=== PATIENT | male | born 1970 | race Hispanic/Latino ===

== ENCOUNTER 2018-11-19 01:06 | Emergency (ER) | payer OTHER ==
[2018-11-19] MEDS ORDERED: NACL 0.9% 1000 ML 1,000 ML IV ONE (01:19)
[2018-11-19 02:34] LABS: Basophils % (Auto) 0.2 % (0.0-1.8); Eosinophils # (Auto) 0.2 K/mm3 (0.0-0.4); Hematocrit 49.9 % (35.5-45.6); Hemoglobin 17.3 gm/dl (11.8-15.2); Lymphocytes # (Auto) 1.5 K/mm3 (1.2-5.4); Lymphocytes % (Auto) 18.2 % (13.4-35.0); Mean Corpuscular HGB Conc 35 % (32-34); Mean Corpuscular Volume 88 fl (84-94); Monocytes # (Auto) 0.7 K/mm3 (0.0-0.8); Monocytes % (Auto) 8.6 % (0.0-7.3); Platelet Count 227 K/mm3 (140-440); Red Blood Count 5.66 M/mm3 (3.65-5.03); Red Cell Distribution Width 13.3 % (13.2-15.2)
[2018-11-19 03:00] LABS: Alanine Aminotransferase 24 units/L (7-56); Albumin 4.4 g/dL (3.9-5); BUN/Creatinine Ratio 13; Blood Urea Nitrogen 12 mg/dL (9-20); Calcium 9.4 mg/dL (8.4-10.2); Hemolysis Index 8
[2018-11-19] MEDS ORDERED: PEPCID PO ONE (03:37)
[2018-11-19] MEDS ORDERED: ZOFRAN ORAL LIQ PO ONE (03:37)
[2018-11-19] MEDS ORDERED: CARAFATE PO ONE (03:37)
--- NOTE | 2018-11-19 03:38 | Emergency Department Report ---
ED Abdominal Pain HPI - General Chief Complaint: Abdominal Pain Stated Complaint: ABD PAIN Time Seen by Provider: 11/19/18 03:28 Source: patient, EMS (ems notes not available at time of chart dictation), RN notes reviewed Mode of arrival: Ambulatory Limitations: No Limitations - History of Present Illness Initial Comments: This is a 48-year-old gentleman. The patient is not known to this provider previously. The patient recently traveled to this stage from [place]. The patient is visiting for work. He reports a past medical history of diabetes. He takes metformin currently. He is also taking trulicity. He reports taking this last medication for the past 6 months, and was recently taking 0.75 mg injections. Recently, he followed up with his outpatient shellfish checker, and apparently his hemoglobin A1c was elevated, and his shellfish checker increased the dosage to 1.5 mg subcutaneously each week. Since this increase in the medication, the patient has been having intermittent abdominal cramping, nausea, vomiting, diarrhea. His abdominal cramping is epigastric and periumbilical, does not radiate anywhere, and does not really have exacerbating or relieving factors. He denies headache, neck pain, chest pain, shortness of breath, testicular pain, irritative urinary symptoms. His nausea and vomiting are intermittent. No fevers or chills. His last episode of nausea, vomiting was at 12:30 in the morning. Patient reports having had a normal CT scan as an outpatient within the past couple of months. MD Complaint: abdominal pain -: Gradual Severity scale (0 -10): 10 Quality: cramping Consistency: intermittent Improves With: other Worsens With: other Context: other Associated Symptoms: nausea, vomiting, diarrhea - Related Data Previous Rx's Medication Instructions Recorded Last Taken Type Famotidine [Pepcid] 20 mg PO BID #30 tablet 11/19/18 Unknown Rx Ondansetron [Zofran Odt] 4 mg PO Q8HR PRN #20 tab.rapdis 11/19/18 Unknown Rx Allergies Allergy/AdvReac Type Severity Reaction Status Date / Time Penicillins AdvReac Unknown Verified 11/19/18 01:09 ED Review of Systems ROS: Stated complaint: ABD PAIN Other details as noted in HPI Constitutional: denies: fever Eyes: denies: eye discharge ENT: denies: epistaxis Respiratory: denies: cough Cardiovascular: denies: chest pain Gastrointestinal: abdominal pain, nausea, vomiting, diarrhea Genitourinary: denies: urgency, dysuria, testicular pain Musculoskeletal: denies: back pain Skin: denies: lesions Neurological: denies: weakness Psychiatric: denies: anxiety ED Past Medical Hx - Past Medical History Previous Medical History?: Yes Hx Diabetes: Yes - Surgical History Past Surgical History?: Yes - Social History Smoking Status: Never Smoker Substance Use Type: None - Medications Home Medications: Home Medications Medication Instructions Recorded Confirmed Last Taken Type Famotidine [Pepcid] 20 mg PO BID #30 tablet 11/19/18 Unknown Rx Ondansetron [Zofran Odt] 4 mg PO Q8HR PRN #20 tab.rapdis 11/19/18 Unknown Rx ED Physical Exam - General Limitations: No Limitations General appearance: alert, in no apparent distress - Head Head exam: Present: atraumatic, normocephalic - Eye Eye exam: Present: normal appearance, EOMI. Absent: nystagmus - ENT ENT exam: Present: normal exam, normal orophraynx, mucous membranes moist, normal external ear exam - Neck Neck exam: Present: normal inspection, full ROM. Absent: tenderness, meningismus - Respiratory Respiratory exam: Present: normal lung sounds bilaterally. Absent: respiratory distress - Cardiovascular Cardiovascular Exam: Present: regular rate, normal rhythm, normal heart sounds. Absent: bradycardia, tachycardia, systolic murmur, diastolic murmur, rubs, gallop - GI/Abdominal GI/Abdominal exam: Present: soft, normal bowel sounds. Absent: distended, tenderness, guarding, rebound, rigid, pulsatile mass - Rectal Rectal exam: Present: deferred - Extremities Exam Extremities exam: Present: normal inspection, full ROM, other (2+ pulses noted in the bilateral upper, lower extremities. Compartments soft. No long bony tenderness. The pelvis is stable.). Absent: pedal edema, calf tenderness - Back Exam Back exam: Present: normal inspection, full ROM. Absent: tenderness, CVA tenderness (R), paraspinal tenderness, vertebral tenderness - Neurological Exam Neurological exam: Present: alert, oriented X3, CN II-XII intact, normal gait, other (Extraocular movements intact. Tongue midline. No facial droop. Facial sensation intact to light touch in the V1, V2, V3 distribution bilaterally. 5 and 5 strength in 4 extremities.. Sensation is intact to light touch in 4 extremities.). Absent: motor sensory deficit - Psychiatric Psychiatric exam: Present: normal affect, normal mood - Skin Skin exam: Present: warm, dry, intact, normal color. Absent: rash ED Course Vital Signs 11/19/18 11/19/18 01:10 03:49 Temperature 98.4 F 98.4 F Pulse Rate 105 H 93 H Respiratory 18 14 Rate Blood Pressure 125/81 Blood Pressure 149/85 [Left] O2 Sat by Pulse 97 97 Oximetry ED Medical Decision Making - Lab Data Result diagrams: 11/19/18 01:51 11/19/18 01:51 Vital Signs 11/19/18 11/19/18 01:10 03:49 Temperature 98.4 F 98.4 F Pulse Rate 105 H 93 H Respiratory 18 14 Rate Blood Pressure 125/81 Blood Pressure 149/85 [Left] O2 Sat by Pulse 97 97 Oximetry Lab Results 11/19/18 11/19/18 Range/Units 01:51 01:51 WBC 8.3 (4.5-11.0) K/mm3 RBC 5.66 H (3.65-5.03) M/mm3 Hgb 17.3 H (11.8-15.2) gm/dl Hct 49.9 H (35.5-45.6) % MCV 88 (84-94) fl MCH 31 (28-32) pg MCHC 35 H (32-34) % RDW 13.3 (13.2-15.2) % Plt Count 227 (140-440) K/mm3 Lymph % (Auto) 18.2 (13.4-35.0) % [place] % (Auto) 8.6 H (0.0-7.3) % Eos % (Auto) 2.0 (0.0-4.3) % Baso % (Auto) 0.2 (0.0-1.8) % Lymph # 1.5 (1.2-5.4) K/mm3 [place] # 0.7 (0.0-0.8) K/mm3 Eos # 0.2 (0.0-0.4) K/mm3 Baso # 0.0 (0.0-0.1) K/mm3 Seg Neutrophils % 71.0 H (40.0-70.0) % Seg Neutrophils # 5.9 (1.8-7.7) K/mm3 Sodium 138 (137-145) mmol/L Potassium 4.8 (3.6-5.0) mmol/L Chloride 94.9 L (98-107) mmol/L Carbon Dioxide 32 H (22-30) mmol/L Anion Gap 16 mmol/L BUN 12 (9-20) mg/dL Creatinine 0.9 (0.8-1.5) mg/dL Estimated GFR > 60 ml/min BUN/Creatinine Ratio 13 % Glucose 190 H (75-100) mg/dL Calcium 9.4 (8.4-10.2) mg/dL Total Bilirubin 1.80 H (0.1-1.2) mg/dL AST 18 (5-40) units/L ALT 24 (7-56) units/L Alkaline Phosphatase 48 (35-129) units/L Total Protein 7.1 (6.3-8.2) g/dL Albumin 4.4 (3.9-5) g/dL Albumin/Globulin Ratio 1.6 % Lipase 38 (13-60) units/L - EKG Data -: EKG Interpreted by N[facility] EKG shows normal: sinus rhythm Rate: normal - EKG Data 11/19/18 04:04 This is a normal sinus rhythm, 90 bpm, normal axis, normal intervals, Q waves noted in the inferior leads, not having chest pain, not consistent with ST elevation myocardial infarction. There is no prior EKG available for comparison. Q waves also noted in V5, V6. - Medical Decision Making Differential diagnosis, including not limited to, GERD, gastritis, hiatal hernia, pancreatitis, medication side effect Assessment and plan: 48-year-old gentleman with resolved abdominal pain, nausea, vomiting, diarrhea after his diabetic subcutaneous medication was increased in dosage within the past week. His reported symptoms are documented as known side effects of this medication. The patient is afebrile with reassuring vital signs, speaking in full sentences, with no active nausea, vomiting at this time, and he is able to tolerate liquid feeds. Extensive discussion had with patient. I informed the patient that I suspect his medication is the most likely cause of his symptoms. He indicates he will decrease his dosage, and he is flying back to [place] later on today. I explained to the patient that I thought it was unlikely that he was experiencing an acute surgical process, and explained to him that we did have the option of obtaining a CT scan of the abdomen and pelvis, although based off of the history and physical, I did not think that it was necessary. The patient is in agreement, and through shared decision making, we agreed to not obtain CT scan of the abdomen and pelvis. Patient is concerned about the risks of radiation exposure. I agree with him. Patient was informed about risks, benefits, alternatives. The patient has been observed in this emergency department for over 3 hours, without clinical decompensation, and he clinically appears well, and is able to tolerate liquid feeds. The patient is medically suitable for discharge at this point in time. Return precautions are reviewed. Critical care attestation.: If time is entered above; I have spent that time in minutes in the direct care of this critically ill patient, excluding procedure time. ED Disposition Clinical Impression: History of nausea and vomiting Disposition: DC- TO HOME OR SELFCARE Is pt being admited?: No Does the pt Need Aspirin: No Condition: Stable Instructions: Acute Nausea and Vomiting (ED), Abdominal Pain (ED) Additional Instructions: As we discussed, symptoms likely coming from increased dosage of patient's medication, shubham Decreased dose to 0.75 mg injected once weekly. Avoid consumption of Motrin, ibuprofen, Naprosyn, Aleve, heavy, spicy foods. As we discussed, modifications to diet and lifestyle are excellent ways to lower hemoglobin A1c. Patient will likely benefit from participating in physical activity, fitness as tolerated, and modifying diet to include plenty of fibers, vegetables, and avoidance of sugary drinks, processed foods, and complex carbohydrates. Please follow-up with the primary care doctor or your shellfish checker within the next 5-7 days. Take the pain medication, nausea medication as needed/directed. Return to the emergency room right away with new pain, worsening pain, migration of pain, projectile vomiting, change in mental status, confusion, inability to tolerate liquid feeds, new, worsening or different symptoms. Referrals: JENIFFER RYAN [Other] - 3-5 Days
[2018-11-19 03:51] VITALS: BP 149/85
[2018-11-19 04:10] LABS: Bilirubin,Urine NEG (Negative); Blood,Urine NEG (Negative); Color,Urine Yellow (Yellow); Mucus,Urine 3+ /HPF; Protein,Urine <15 mg/dL mg/dL (Negative)
== END 2018-11-19 04:19 | disposition home or self-care (01) ==
LOC: ED 01:06
DX: R11.2 Nausea with vomiting, unspecified (principal); R10.9 Unspecified abdominal pain; R19.7 Diarrhea, unspecified; E11.9 Type 2 diabetes mellitus without complications; Z88.0 Allergy status to penicillin
CPT/HCPCS: 36415; 80053; 81001; 83690; 85025; 93005; 93010; 99284; Q0162